=== PATIENT | male | born 1960 | race Caucasian/White ===

== ENCOUNTER 2019-02-20 09:52 | Outpatient (CLI) | payer OTHER ==
--- NOTE | 2019-02-20 12:11 | RAD ---
LEFT FOOT 3 VIEWS: Date: 02/20/19 HISTORY: Foot pain. FINDINGS: Moderate osteoarthritic changes of the first metatarsophalangeal joint seen. Prominent calcaneal spur s are present. there is also what appears to be some hyperostotic bony changes which appear to be josselyn ng the dorsal surface of the distal calcaneus, more on the lateral side of the ankle. I am not certai n if this is related to some type of bony coalition in this region and would be better investigated b y CT. IMPRESSION: Arthritic changes of the foot as described above. POS: [facility]
== END 2019-02-20 09:53 | disposition home or self-care (01) ==
LOC: RAD-FRANK 09:52
PROVIDERS: ATTEND Nurse Practitioner Family
DX: M79.672 Pain in left foot (principal); M19.072 Primary osteoarthritis, left ankle and foot

== ENCOUNTER 2019-04-23 09:11 | Observation (INO) | payer OTHER, SELFPAY ==
[2019-04-23] MEDS ORDERED: Nitroglycerin 0.4 MG TAB 1 EACH ONE (09:52)
--- NOTE | 2019-04-23 10:03 | RAD ---
EXAM: Portable chest PROVIDED CLINICAL HISTORY: Chest pain COMPARISON: None FINDINGS: Cardiac and mediastinal silhouette is within normal limits. No focal consolidation, pleural fluid or pneumothorax evident. IMPRESSION: No evidence for an acute cardiopulmonary process.
[2019-04-23 10:14] LABS: #Basophils 0.1 thou/uL (0.0-0.2); #Eosinphils 0.1 thou/uL (0.0-0.7); #Lymphocytes 1.9 thou/uL (1.20-3.40); #Monocytes 0.3 thou/uL (0.11-0.59); #Neutrophils 3.8 thou/uL (1.40-6.50); %Basophils 0.8 % (0.0-1.0); %Eosinophils 2.2 % (0.0-10.0); %Lymphocytes 30.3 % (21.0-51.0); %Monocytes 5.1 % (0.0-10.0); %Neutrophils 61.6 % (42.0-75.0); Hemoglobin 16.9 g/dL (14.0-18.0); Mean Corpuscular HGB CONC 33.8 g/dL (32.0-36.0); Mean Corpuscular Hemoglobin 29.8 pg (27.0-31.0); Mean Corpuscular Volume 88.2 fL (78.0-98.0); Mean Platelet Volume 8.8 fL (7.4-10.4); Platelet Count 179 thou/uL (130-400); RBC Distribution Width 13.4 % (11.5-14.5); Red Blood Cell (RBC) Count 5.67 mill/uL (4.70-6.10); White Blood Cell (WBC) Count 6.2 thou/uL (4.8-10.8)
[2019-04-23 10:32] LABS: ALT (SGPT) 64 U/L (8-55); AST (SGOT) 28 U/L (5-34); Albumin 4.3 g/dL (3.5-5.0); Alkaline Phosphatase 58 U/L (40-150); Anion Gap 14 mmol/L (10-20); BUN (Urea Nitrogen) 16 mg/dL (8.4-25.7); Bilirubin, Total 0.4 mg/dL (0.2-1.2); Calc. Creatinine Clearance 0 mL/min (70-130); Calcium 9.4 mg/dL (7.8-10.44); Carbon Dioxide 24 mmol/L (22-29); Chloride 101 mmol/L (98-107); Estimated GFR-MDRD 73; Globulin 2.7 g/dL (2.4-3.5); Glucose 241 mg/dL (70-105); Potassium 3.8 mmol/L (3.5-5.1); Sodium 135 mmol/L (136-145)
[2019-04-23 13:53] VITALS: BMI 35.9
[2019-04-23] MEDS ORDERED: Acetaminophen 325 MG TAB PO PRN (14:01)
[2019-04-23] MEDS ORDERED: Aspirin 325 mg Enteric Coated Tablet PO SCH (14:15)
[2019-04-23 14:49] LABS: Troponin I Less than 0.010 ng/mL (< 0.028)
[2019-04-23 16:56] LABS: Troponin I 0.014 ng/mL (< 0.028)
--- NOTE | 2019-04-23 19:39 | HP ---
CHIEF COMPLAINT: Chest pain. HISTORY OF PRESENT ILLNESS: The patient is a 58-year-old male with a history of CAD, status post stent x1; history of diabetes and hypertension, who presents to the hospital with complaints of chest pain x1 day. The patient stated that about 2 weeks ago while he was playing golf, he felt dizzy, started having his arm feeling heavy and also had some chest tightness. Initially, he did not go into the ER. However, a few days later, it happened again, so he went to the Urgent Care and then was rerouted to the ER. 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 The patient initially was seen by Cardiology last week, underwent a stress test, however, he was supposed to initially get a cardiac cath, but the patient did not at that time want a cardiac cath and wanted an alternative test. He underwent a stress test last . The patient stated that today he was at [employer] and he started having significant amount of chest tightness. It was a dull pain. He got very short of breath. His pain went down both of his arms. So he came into the ER for further evaluation. The patient's last heart attack, when he did have one, he stated that he had elbow pains, did not have chest tightness as normal people do. PAST MEDICAL HISTORY: He has a history of CAD, obesity, diabetes, and hypertension. FAMILY HISTORY: Father had a history of CAD, started at the age of 44. His grandfather also had significant cardiac disease, also his brother. PAST SURGICAL HISTORY: He had had right ACL repair and stent x1. ALLERGIES: HE HAS NO KNOWN DRUG ALLERGIES. MEDICATIONS: The patient is going to bring as a list of medications. He does take aspirin 81 mg daily. SOCIAL HISTORY: He smokes half a pack, which lasts him about 3 to 4 days. Once a week alcohol use, beer and no drug use. He is a full code. Lives with his family. REVIEW OF SYSTEMS: All negative except for the ones mentioned above in the HPI. PHYSICAL EXAMINATION: VITAL SIGNS: Temperature 97.8, pulse 63, respiratory rate 18, O2 saturation 93% on room air, and blood pressure 151/89. GENERAL: He is awake, alert, and oriented x3. Does not appear in distress. CV: S1 and S2 present. No murmurs, rubs, or gallops. ABDOMEN: Soft and nontender. Bowel sounds present x2. EXTREMITIES: No edema. Pedal pulses are present x2. LUNGS: Clear to auscultation. No rhonchi or wheezes noted. NEUROVASCULAR: No focal deficits noted. SKIN: No cuts, lesions, or bruises noted. LABORATORY DATA: His laboratory results as of the following; WBCs of 6.2, hemoglobin of 15.9, hematocrit of 50.1, platelets of 179. Chemistry; sodium of 135, potassium of 3.8, creatinine 1.04, glucose of 241. Troponin x1 was negative. His chest x-ray that was done did not show any acute abnormalities. ASSESSMENT AND PLAN: The patient is a very pleasant 58-year-old male, who presents to the hospital with complaints of chest pain. 1. Chest pain. Given his history of coronary artery disease and his recent stress test, I will consult Cardiology. The patient may require cardiac catheterization. He does have significant risk factors. I will keep him n.p.o. after midnight. I will start him on some gentle hydration at midnight. Continue the aspirin and the statin and his home medications and continue to trend his troponins. Also p.r.n. nitroglycerin will be provided. 2. Hypertension. We will continue his home medications. 3. Coronary artery disease. The patient is currently on aspirin. We will continue that. 4. Obesity. The patient has been advised diet and exercise. 5. Smoking cessation. The patient continues to smoke half a pack every 3 or 4 days. 6. Deep venous thrombosis prophylaxis. We will put the patient on SCDs. Job ID: [id number]
[2019-04-23] MEDS ORDERED: Atorvastatin Calcium 40 MG TAB PO SCH (21:00)
[2019-04-24] MEDS ORDERED: Sodium Chloride 0.9% 1,000 ML IV SCH (00:30)
[2019-04-24] MEDS ORDERED: Aspirin 325 mg Enteric Coated Tablet PO SCH (09:00)
[2019-04-24] MEDS ORDERED: Allopurinol 300 MG TAB PO SCH (09:00)
[2019-04-24] MEDS ORDERED: Enoxaparin Sodium 40 MG/0.4 ML SYRINGE SC SCH (09:00)
[2019-04-24] MEDS ORDERED: Non-Formulary Item 1 EACH (Hydrochlorothiazide [Hydrochlorothiazide] 12.5 MG) PO SCH (09:00)
[2019-04-24] MEDS ORDERED: Iopamidol 370 76% 100 ML VIAL ONE (10:04)
[2019-04-24] MEDS ORDERED: Iopamidol 370 76% 50 ML VIAL FS ONE (10:04)
[2019-04-24] MEDS ORDERED: Nitroglycerin 100MG/250ML BOT 250 ML ONE (11:39)
[2019-04-24] MEDS ORDERED: Lidocaine 1% (PF) 30 ML VIAL ONE (11:39)
[2019-04-24] MEDS ORDERED: Verapamil 5 MG/2 ML VIAL ONE (11:39)
[2019-04-24] MEDS ORDERED: Heparin 10,000 UNITS/1 ML VIAL ONE ×2 (11:39→13:04)
--- NOTE | 2019-04-24 11:51 | CON ---
DATE OF CONSULTATION: 04/24/2019 REASON FOR CONSULTATION: Chest pain. HISTORY OF PRESENT ILLNESS: Mr. Hernandez is a pleasant 58-year-old white gentleman, who comes to the hospital for chest pain. He was seen in the office about 2 weeks ago with similar complaints. He had a stress test last week, which was normal. Echocardiogram was pending. He continues to have chest pain today and was admitted to the hospital for rule out. His troponins have been negative so far, but he continues to have episodes of chest pain despite a normal stress test. Currently, he is chest pain free. PAST MEDICAL HISTORY: 1. History of coronary artery disease with a previous stent in the setting of an acute [place]. 2. Type 2 diabetes. 3. Hypertension. 4. Obesity. FAMILY HISTORY: Coronary artery disease at age 44 in his father. Grandfather also had cardiac disease, but he is unclear as to what brother has heart disease as well, unclear as to details. PAST SURGICAL HISTORY: 1. Right ACL repair. 2. Stenting x1. ALLERGIES: NO KNOWN DRUG ALLERGIES. OUTPATIENT MEDICATIONS: 1. Simvastatin 40 mg at bedtime. 2. Hydrochlorothiazide 12.5 mg daily. 3. Allopurinol. 4. Metformin 500 mg b.i.d. 5. Aspirin 81 a day. SOCIAL HISTORY: He smokes, half a pack lasts him for about 4 days. Drinks alcohol on weekends. No drug use. REVIEW OF SYSTEMS: A 12-point review of systems was negative unless stated in the history of present illness. PHYSICAL EXAMINATION: VITAL SIGNS: Temperature 97.4, pulse 71, respiratory rate 16, saturation 93% on room air, and blood pressure 122/75. GENERAL: Awake, alert, oriented x3. No distress. HEENT: Normocephalic, atraumatic. NECK: Supple. LUNGS: Clear. CARDIOVASCULAR: S1 and S2. No S3 or S4. No murmurs. ABDOMEN: Soft. Positive bowel sounds. EXTREMITIES: No edema. SKIN: Warm and dry. LABORATORY DATA: Laboratory work was reviewed. CBC is unremarkable. Chemistries unremarkable. GFR of 73. Creatinine 1.04. Troponin negative x3. Glucose was 241. Chest x-ray was negative. ASSESSMENT AND PLAN: 1. Chest pain, ongoing episodes of chest pain. He had normal stress test last week. Echo is still pending. We will plan on further risk stratification with a heart catheterization. I spoke with him at length of the risks and benefits of the procedure. Risks included, but not limited to stroke, [place], , bleeding, need for blood transfusion, limb loss, organ loss. The patient understands and verbalized understanding of this, agrees to proceed. Drug-eluting stents if needed. We will do radial access. 2. Further recommendations per results of coronary angiogram. Thank you for letting us to participate in the care of your patient. Job ID: [id number]
[2019-04-24] MEDS ORDERED: Midazolam HCl 2 mg/2 ml Vial ONE (12:05)
[2019-04-24] MEDS ORDERED: Fentanyl 100 MCG/2 ML VIAL ONE (12:05)
[2019-04-24] MEDS ORDERED: TICAGRELOR 90 MG TABLET ONE (12:35)
[2019-04-24] MEDS ORDERED: Morphine 4 MG/ML VIAL SLOW IVP PRN (12:59)
[2019-04-24] MEDS ORDERED: Sodium Chloride 0.9% 500 ML IV SCH (13:15)
[2019-04-24 16:10] VITALS: BP 131/72; TEMP 97.6
[2019-04-24] MEDS ORDERED: Atorvastatin Calcium 20 MG TAB PO SCH (21:00)
[2019-04-24] MEDS ORDERED: TICAGRELOR 90 MG TABLET PO SCH (21:00)
[2019-04-24] MEDS ORDERED: Simvastatin 40 MG TAB PO SCH (21:00)
[2019-04-25] MEDS ORDERED: Lisinopril 2.5 MG TAB PO SCH (09:00)
[2019-04-25] MEDS ORDERED: Aspirin Chewable 81 MG TAB PO SCH (09:00)
--- NOTE | 2019-04-29 15:56 | EKG ---
Test Reason : CP Blood Pressure : / mmHG Vent. Rate : 078 BPM Atrial Rate : 078 BPM P-R Int : 194 ms QRS Dur : 104 ms QT Int : 376 ms P-R-T Axes : 018 -16 034 degrees QTc Int : 428 ms Sinus rhythm with Fusion complexes Incomplete right bundle branch block Inferior infarct , age undetermined Possible Anterior infarct , age undetermined Abnormal ECG Confirmed by YUAN CARY ([id number]), business editor ELMA CRANE ([id number]) on 04/29/2019 3:55:41 PM Referred By: Confirmed By:YUAN CARY
== END 2019-04-24 17:36 | disposition home or self-care (01) ==
LOC: ERS 09:11 → 2SW 12:15
PROVIDERS: ADMIT Internal Medicine; ATTEND Internal Medicine
PROC: 4A023N7 Measurement of Cardiac Sampling and Pressure, Left Heart, Percutaneous Approach (ICD-10-PCS; principal; 2019-04-24)
PROC: B2051ZZ Plain Radiography of Left Heart using Low Osmolar Contrast (ICD-10-PCS; 2019-04-24)
DX: R07.9 Chest pain, unspecified (principal); I25.10 Atherosclerotic heart disease of native coronary artery without angina pectoris; I10 Essential (primary) hypertension; E11.9 Type 2 diabetes mellitus without complications; F17.210 Nicotine dependence, cigarettes, uncomplicated; E66.9 Obesity, unspecified; Z68.35 Body mass index [BMI] 35.0-35.9, adult; Z79.82 Long term (current) use of aspirin; Z79.84 Long term (current) use of oral hypoglycemic drugs; Z79.899 Other long term (current) drug therapy; Z95.5 Presence of coronary angioplasty implant and graft
CPT/HCPCS: 36415; 71045; 80053; 84484; 85025; 85347; 92929; 93005; 93010; 93458; 94760; 99152; 99153; C1760; C1769; C1874; C1887; C9601; G0378; J1644; J2001; J2250; J3010; Q9967

== ENCOUNTER 2022-10-02 14:27 | Outpatient (CLI) | payer OTHER | END 2022-10-02 14:28 | disposition home or self-care (01) | LOC: BICRAD 14:27 | PROVIDERS: ATTEND Nurse Practitioner Family | DX: M54.41 Lumbago with sciatica, right side (principal); M47.816 Spondylosis without myelopathy or radiculopathy, lumbar region | CPT/HCPCS: 72100 ==